=== PATIENT | female | born 1965 | race Caucasian/White ===

== ENCOUNTER → 2016-09-16 20:50 | Emergency (ER) | payer OTHER ==
[2016-09-16 19:35] LABS: BASOPHILS 0.4 %; BASOPHILS ABSOLUTE 0.04 10/3/uL (0.0-0.16); EOSINOPHILS 2.8 %; EOSINOPHILS ABSOLUTE 0.32 10/3/uL (0.0-0.53); HEMATOCRIT 43.9 % (36.0-48.0); HEMOGLOBIN 14.5 g/dL (12.0-16.0); IMMATURE GRANULOCYTES 0.2 %; IMMATURE GRANULOCYTES ABSOLUTE 0.02 10/3/uL (0.0-0.11); LYMPHOCYTES 39.3 %; LYMPHOCYTES ABSOLUTE 4.48 10/3/uL (0.67-4.30); MEAN CORPUSCULAR HEMOGLOB 25.8 pg (26.0-34.0); MEAN PLATELET VOLUME 10.1 fL (9.2-13.0); MONOCYTES 10.5 %; NEUTROPHILS 46.8 %; NEUTROPHILS ABSOLUTE 5.33 10/3/uL (2.02-8.40); PLATELET COUNT 473 10/3/uL (150-400); RBC DISTRIBUTION WIDTH 15.9 % (12.0-16.0); RED CELL COUNT 5.63 10/6/uL (4.0-5.6); WHITE BLOOD CELLS 11.4 10/3/uL (4.5-10.5)
[2016-09-16 19:36] LABS: MANUAL DIFF NO %
[2016-09-16 19:52] LABS: A/G RATIO 0.8 (0.7-1.9); ALBUMIN 3.7 G/DL (3.5-5.0); ALKALINE PHOSPHATASE 153 U/L (45-117); BUN (BLOOD UREA NITROGEN) 12 MG/DL (6-23); CALCIUM, SERUM 9.2 MG/DL (8.5-10.4); CHLORIDE, SERUM 106 MMOL/L (96-112); CO2 (CARBON DIOXIDE) 25 MMOL/L (24-34); CREATININE 0.68 MG/DL (0.55-1.02); GFR AFRICAN AMERICAN 120 ML/MIN (>=60); GFR NON AFRICAN AMERICAN 103 ML/MIN (>=60); GLOBULIN 4.5 G/DL (2.5-4.1); POTASSIUM, SERUM 3.9 MMOL/L (3.5-5.3); SGOT(AST) 20 U/L (5-40); SGPT(ALT) 28 U/L (5-65); SODIUM, SERUM 140 MMOL/L (135-148); TOTAL BILIRUBIN 0.3 MG/DL (0-1.2); TOTAL PROTEIN 8.2 G/DL (6.0-8.5)
[2016-09-16 19:53] LABS: GLUCOSE, SERUM 101 MG/DL (60-99)
[2016-09-16 19:55] LABS: ASCORBIC ACID (UR NOT ORDER) NEG (NEG); BILIRUBIN, URINE NEGATIVE (NEG); ER URINALYSIS TAT 0 Hrs 12 Mins; KETONE, URINE NEGATIVE (NEG); LEUKOCYTE ESTERASE(NOT OR NEG (NEG); WBC (NOT ORDERED) (RFLEX) 1 (0-5)
[2016-09-16 19:56] LABS: NITRITE (URINE) NEG (NEG)
[~2016-09-16 20:50] MED LIST: A/D ZINC OXI TOP; ALLEGRA180 PO; ATV.5 PO; BUSPAR30 MG PO; CIP5 PO; FLONASE NAS; GAVISCO2 PO; MAGNESIUM 500MG OTC PO; NEUR300 PO; OREGANO OIL PO; OTC PROBIOTIC PO; OXYCOD PO; PANCRELIPASE PO; PCET PO; PERCOCET1 TA2 PO; PR25 PO; PRILO PO; PRILOSEC40 MG PO; PROAIR HFA INH; PROBIOTIC OTC PO; PROZAC PO; PYR200 PO; RHINOCORT AQUA NAS; SIMVASTATIN PO; STOMACH MEDICATION PO; SUCR PO; TURMERIC 800 MG PO; VITAMIN B PO; ZOCOR10 PO; ZOL100 PO; [UNRECOGNIZED DRUG - CODE] PO
== END | disposition left against medical advice (07) ==
LOC: ER 20:50
PROVIDERS: Specialist
DX: Z53.21 Procedure and treatment not carried out due to patient leaving prior to being seen by health care provider (principal)
CPT/HCPCS: 80053; 81001; 83690; 85025; 93005; 99282

== ENCOUNTER 2016-09-27 21:19 | Emergency (ER) | payer OTHER ==
[~2016-09-27 21:19] MED LIST changes: -ALLEGRA180 PO; -BUSPAR30 MG PO; -CIP5 PO; -MAGNESIUM 500MG OTC PO; -PCET PO; -PR25 PO; -PRILOSEC40 MG PO; -PYR200 PO; -RHINOCORT AQUA NAS; -TURMERIC 800 MG PO; -VITAMIN B PO; -ZOL100 PO
[2016-09-27 22:03] LABS: WBC (NOT ORDERED) (RFLEX) 0 (0-5)
[2016-09-27 22:11] LABS: BASOPHILS 0.3 %; BASOPHILS ABSOLUTE 0.04 10/3/uL (0.0-0.16); EOSINOPHILS ABSOLUTE 0.44 10/3/uL (0.0-0.53); ER CBC TAT 0 Hrs 12 Mins; HEMATOCRIT 40.1 % (36.0-48.0); IMMATURE GRANULOCYTES 0.3 %; IMMATURE GRANULOCYTES ABSOLUTE 0.04 10/3/uL (0.0-0.11); LYMPHOCYTES 42.8 %; MEAN CORPUS HGB CONC 32.4 g/dL (32.0-36.0); MEAN CORPUSCULAR HEMOGLOB 25.2 pg (26.0-34.0); MEAN CORPUSCULAR VOLUME 77.9 fL (80-100); MEAN PLATELET VOLUME 10.9 fL (9.2-13.0); MONOCYTES 9.2 %; MONOCYTES ABSOLUTE 1.33 10/3/uL (0.21-1.20); NEUTROPHILS 44.4 %; NEUTROPHILS ABSOLUTE 6.45 10/3/uL (2.02-8.40); PLATELET COUNT 504 10/3/uL (150-400); RBC DISTRIBUTION WIDTH 15.7 % (12.0-16.0); RED CELL COUNT 5.15 10/6/uL (4.0-5.6); WHITE BLOOD CELLS 14.5 10/3/uL (4.5-10.5)
[2016-09-27 22:11] LABS: ASCORBIC ACID (UR NOT ORDER) NEG (NEG); BILIRUBIN, URINE NEGATIVE (NEG); ER URINALYSIS TAT 0 Hrs 12 Mins; KETONE, URINE NEGATIVE (NEG); LEUKOCYTE ESTERASE(NOT OR NEG (NEG); NITRITE (URINE) NEG (NEG)
[2016-09-27 22:12] LABS: MANUAL DIFF NO %
[2016-09-27 22:26] LABS: A/G RATIO 0.8 (0.7-1.9); ALBUMIN 3.5 G/DL (3.5-5.0); ALKALINE PHOSPHATASE 140 U/L (45-117); BUN (BLOOD UREA NITROGEN) 10 MG/DL (6-23); CALCIUM, SERUM 8.8 MG/DL (8.5-10.4); CHLORIDE, SERUM 108 MMOL/L (96-112); CO2 (CARBON DIOXIDE) 27 MMOL/L (24-34); CREATININE 0.67 MG/DL (0.55-1.02); GFR AFRICAN AMERICAN 120 ML/MIN (>=60); GFR NON AFRICAN AMERICAN 104 ML/MIN (>=60); GLOBULIN 4.2 G/DL (2.5-4.1); GLUCOSE, SERUM 102 MG/DL (60-99); POTASSIUM, SERUM 3.4 MMOL/L (3.5-5.3); SGOT(AST) 16 U/L (5-40); SGPT(ALT) 28 U/L (5-65); SODIUM, SERUM 143 MMOL/L (135-148); TOTAL BILIRUBIN 0.2 MG/DL (0-1.2); TOTAL PROTEIN 7.7 G/DL (6.0-8.5)
[2016-09-27 22:46] LABS: EOSINOPHILS 4 %; EOSINOPHILS ABSOLUTE (CALC) 0.58 10/3/uL (0.0-0.53); ER DIFF TAT 0 Hrs 47 Mins; LYMPHOCYTES 40 %; MONOCYTES 12 %; MONOCYTES ABSOLUTE (CALC) 1.74 10/3/uL (0.21-1.20); NEUTROPHILS ABSOLUTE (CALC) 6.38 10/3/uL (2.02-8.40); SEGMENTED NEUTROPHIL (0) 44 %; TOTAL NUCLEATED CELLS 100
[2016-09-27 22:47] LABS: HYPOCHROMIA 1+ (3-10/OIF) (0-2/OIF); PLATELET ESTIMATE SLT INC (ADEQUATE); TARGET CELLS FEW (3-10/OIF) (0-1/OIF)
== END 2016-09-28 02:16 | disposition home or self-care (01) ==
LOC: ER 21:19
PROVIDERS: Emergency Medicine
DX: R10.31 Right lower quadrant pain (principal); Z87.442 Personal history of urinary calculi; Z98.51 Tubal ligation status; Z79.899 Other long term (current) drug therapy
CPT/HCPCS: 74177; 80053; 81001; 83690; 85025; 96374; 99284; J1885; Q9967

== ENCOUNTER 2016-10-17 00:02 | Observation (INO) | payer OTHER ==
[2016-10-16 20:58] LABS: BASOPHILS 0.3 %; BASOPHILS ABSOLUTE 0.04 10/3/uL (0.0-0.16); EOSINOPHILS 2.8 %; EOSINOPHILS ABSOLUTE 0.37 10/3/uL (0.0-0.53); ER CBC TAT 0 Hrs 08 Mins; HEMATOCRIT 41.7 % (36.0-48.0); HEMOGLOBIN 13.6 g/dL (12.0-16.0); IMMATURE GRANULOCYTES 0.2 %; IMMATURE GRANULOCYTES ABSOLUTE 0.03 10/3/uL (0.0-0.11); LYMPHOCYTES 51.5 %; LYMPHOCYTES ABSOLUTE 6.85 10/3/uL (0.67-4.30); MANUAL DIFF NO %; MEAN CORPUS HGB CONC 32.6 g/dL (32.0-36.0); MEAN CORPUSCULAR HEMOGLOB 25.9 pg (26.0-34.0); MEAN CORPUSCULAR VOLUME 79.4 fL (80-100); MONOCYTES 8.7 %; MONOCYTES ABSOLUTE 1.16 10/3/uL (0.21-1.20); NEUTROPHILS 36.5 %; NEUTROPHILS ABSOLUTE 4.84 10/3/uL (2.02-8.40); PLATELET COUNT 458 10/3/uL (150-400); RBC DISTRIBUTION WIDTH 15.9 % (12.0-16.0); RED CELL COUNT 5.25 10/6/uL (4.0-5.6); WHITE BLOOD CELLS 13.3 10/3/uL (4.5-10.5)
[2016-10-16 21:11] LABS: BUN (BLOOD UREA NITROGEN) 13 MG/DL (6-23); CALCIUM, SERUM 8.6 MG/DL (8.5-10.4); CHLORIDE, SERUM 107 MMOL/L (96-112); CO2 (CARBON DIOXIDE) 28 MMOL/L (24-34); GFR AFRICAN AMERICAN 119 ML/MIN (>=60); GFR NON AFRICAN AMERICAN 102 ML/MIN (>=60); GLUCOSE, SERUM 88 MG/DL (60-99); POTASSIUM, SERUM 3.6 MMOL/L (3.5-5.3); SODIUM, SERUM 143 MMOL/L (135-148)
[2016-10-16 21:21] LABS: BAND NEUTROPHILS 4 %; EOSINOPHILS 2 %; EOSINOPHILS ABSOLUTE (CALC) 0.27 10/3/uL (0.0-0.53); ER DIFF TAT 0 Hrs 31 Mins; LYMPHOCYTES 53 %; LYMPHOCYTES ABSOLUTE (CALC) 7.05 10/3/uL (0.67-4.30); MONOCYTES 5 %; MONOCYTES ABSOLUTE (CALC) 0.67 10/3/uL (0.21-1.20); NEUTROPHILS ABSOLUTE (CALC) 5.32 10/3/uL (2.02-8.40); SEGMENTED NEUTROPHIL (0) 36 %; TOTAL NUCLEATED CELLS 100
[2016-10-16 21:22] LABS: GIANT PLATELET OCC; HYPOCHROMIA 1+ (3-10/OIF) (0-2/OIF); PLATELET ESTIMATE SLT INC (ADEQUATE)
[2016-10-16 22:54] LABS: ASCORBIC ACID (UR NOT ORDER) NEG (NEG); BILIRUBIN, URINE NEGATIVE (NEG); ER URINALYSIS TAT 0 Hrs 11 Mins; KETONE, URINE NEGATIVE (NEG); LEUKOCYTE ESTERASE(NOT OR NEG (NEG)
[2016-10-16 22:55] LABS: NITRITE (URINE) POS (NEG); WBC (NOT ORDERED) (RFLEX) 5 (0-5)
--- NOTE | ~2016-10-17 | HP ---
History And Physical [facility] [address] [place]. [address] NAME: OTILIA NEWMAN : 69 STATUS : ADM Arian PAT#: [id number] AGE: 50 ADM/REG DATE : 10/17/16 MR#: [id number] REPORT SERV DATE: 10/17/16 DICTATED BY: Kathleen ALARCON DATE: 10/17/16 REPORT STATUS : Draft TRANSCRIBED BY: MODL DATE: 10/17/16 DATE OF ADMISSION: 10/17/2016 CHIEF COMPLAINT: Right flank pain with distal ureteral stone possible UTI. HISTORY OF PRESENT ILLNESS: Ms. Newman is a 50-year-old white female seen in the emergency room with a history of stone disease and severe right flank pain. A CT showed a 3-mm right distal ureteral stone. She had perinephric stranding and evidence of UTI with inflammatory urine. Her temperature was only 99, and she was hemodynamically stable. We decided to admit her and plan for stent placement possible ureteroscopy, although it was my feeling that would probably not occur. PAST MEDICAL HISTORY: Urolithiasis, pancreatitis, GERD and depression. PAST SURGICAL HISTORY: Previous stone extraction, cholecystectomy, distal pancreatectomy with splenectomy. HOME MEDICATIONS: Vitamin B, BuSpar, Chelly, Prilosec, Phenergan, Zoloft, tumeric, magnesium, and Rhinocort. ALLERGIES: NO KNOWN DRUG ALLERGIES. REVIEW OF SYSTEMS: Full 12-point review of systems negative except as noted above. FAMILY HISTORY: Negative for urologic disease. PHYSICAL EXAMINATION: GENERAL: Alert, uncomfortable-appearing 50-year-old white female, afebrile. VITAL SIGNS: Blood pressure 145/70. HEENT: Normocephalic, atraumatic. CHEST: No respiratory distress. HEART: Regular rate and rhythm. ABDOMEN: Protuberant, nontender, and nondistended. No CVA tenderness. EXTREMITIES: The patient is ambulatory with help. No peripheral edema noted. PSYCH: She has a normal affect. PERTINENT LABORATORY: CBC shows white count 13,300, 36% segs. Urinalysis positive for nitrites, some bacteria, red cells, and white cells. Creatinine 0.7. IMPRESSION: 1. Right flank pain with distal ureteral stone. 2. Possible urinary tract infection. PLAN: 1. We will plan to admit at least overnight, culture her, and give her empiric History And Physical [address] [address] NAME: OTILIA NEWMAN : 69 STATUS : ADM Arian PAT#: [id number] AGE: 50 ADM/REG DATE : 10/17/16 MR#: [id number] REPORT SERV DATE: 10/17/16 DICTATED BY: Kathleen ALARCON DATE: 10/17/16 REPORT STATUS : Draft TRANSCRIBED BY: CHARLENE DATE: 10/17/16 antibiotics. 2. We will plan to take her to the OR today for a probable stent placement with ureteroscopy only if the stone appears easily accessible, but I think she should probably be given delayed ureteroscopy. SOFIA/CHARLENE Kathleen Alarcon M.D. / [id number] CC: Kathleen Alarcon M.D.
--- NOTE | ~2016-10-17 | OP ---
Record Of Operation [facility] [address] [place]. [address] NAME: OTILIA NEWMAN : 69 STATUS : ADM Arian PAT#: [id number] AGE: 50 ADM/REG DATE : 10/17/16 MR#: [id number] REPORT SERV DATE: 10/17/16 DICTATED BY: Kathleen BETANCOURT DATE: 10/17/16 REPORT STATUS : Draft TRANSCRIBED BY: MODL DATE: 10/17/16 DATE OF PROCEDURE: 10/17/2016 PREOPERATIVE DIAGNOSIS: Right distal ureteral stone with probable urinary tract infection. POSTOPERATIVE DIAGNOSIS: Right distal ureteral stone with probable urinary tract infection. PROCEDURES: Cystoscopy, right retrograde pyelography, stone manipulation, double-J stent placement. SURGEON: Kathleen Betancourt M.D. ANESTHESIA: General endotracheal. COMPLICATIONS: None. DRAINS: 7-Italian x 22 cm Contour double-J stent. BRIEF HISTORY: Ms. Newman is a 50-year-old white female with a history of recurrent stone disease. She was seen in the ER with right flank pain, inflammatory urine, low-grade temperature. She is here for stent placement. We talked about ureteroscopy, but in this setting, I felt that stent placement along with delayed ureteroscopy was important. She has received antibiotics and the cultures are pending. The risks of bleeding, infection, anesthesia, injury to adjacent organs, need for additional procedures were all discussed. There were no unanswered questions. DESCRIPTION OF PROCEDURE: Under excellent general anesthesia, the patient was prepped and draped in standard lithotomy position. Cystoscopy was performed with a 30-degree lens and showed concentrated urine with a lot of debris in her bladder. The orifices appeared normal. There were no tumors. The right intramural ureter appeared somewhat dilated. I performed a right retrograde pyelogram using an 8-Italian cone-tipped catheter. It showed a filling defect in the distal ureter with significant ureteral pyelocaliectasis and I confirmed that I only wanted to place a stent at this time. The stone had been manipulated somewhat proximally. I inserted an angled glidewire through a 5-Italian open-ended ureteral catheter and advanced the catheter proximally. The urine was not grossly purulent, but concentrated. I deliberately opacified the collecting system again, which was diluted and had some difficulty advancing the wire due to some tortuosity proximally. I was able to finally advance the 5-Italian open-ended catheter enough that the wire was made to curve into the collecting system. I then removed the open-ended catheter and placed a 7-Italian x 22 cm Contour double-J stent which coiled nicely in the renal pelvis and bladder. I planned to admit Ms. Newman overnight and depending upon her clinical course, I will discharge her when appropriate on antibiotics with delayed ureteroscopy in one to two weeks. JPD/MODL Record Of Operation [facility] [address] [facility] [address] [place]. [address] NAME: OTILIA NEWMAN : 69 STATUS : ADM Arian PAT#: [id number] AGE: 50 ADM/REG DATE : 10/17/16 MR#: [id number] REPORT SERV DATE: 10/17/16 DICTATED BY: Kathleen BETANCOURT DATE: 10/17/16 REPORT STATUS : Draft TRANSCRIBED BY: MODRyley DATE: 10/17/16 Kathleen Betancourt M.D. / [id number] CC: Kathleen Betancourt M.D.
--- NOTE | ~2016-10-17 | DS ---
Discharge Summary [address] [place]. [address] NAME: OTILIA NEWMAN : 69 STATUS : DIS Arian PAT#: [id number] AGE: 50 ADM/REG DATE : 10/17/16 MR#: [id number] REPORT SERV DATE: 10/19/16 DICTATED BY: Kathleen BETANCOURT DATE: 10/18/16 REPORT STATUS : Draft TRANSCRIBED BY: MODL DATE: 10/18/16 ADMISSION DATE: 10/17/2016 DISCHARGE DATE: 10/18/2016 ADMISSION DIAGNOSIS: Obstructing ureteral stone with possible urinary tract infection. DISCHARGE DIAGNOSIS: Obstructing ureteral stone with possible urinary tract infection. Urine culture pending. PROCEDURES DURING ADMISSION: 10/17/2016, cystoscopy, right retrograde pyelography, stone manipulation, double-J stent placement. COMPLICATIONS: None. CONSULTATIONS: None. BRIEF HISTORY: Ms. Newman is a 50-year-old white female with a history of stone disease, admitted with a right UVJ stone, possible UTI with inflammatory urine. Her temperature was 99 and she was hemodynamically stable. HOSPITAL COURSE AND TREATMENT: The patient was taken to the OR. The decision was made to simply place a stent with stone manipulation. Urine cultures were obtained, although it did not meet reflex culture criteria. We asked them to process it anyway and results are pending at this time. On the morning of 10/18, the patient looked much better. She felt fine. She was tolerating her stent well, was afebrile. Her white count was slightly high at 14,400, but she says that she has a chronically, mildly elevated white count. Her creatinine was 0.63. I agreed for discharge and will discharge her with the following plan. DISCHARGE INSTRUCTIONS: 1. Home today. 2. We will give empiric antibiotics with Cipro 500 mg p.o. b.i.d. x5 days. 3. Percocet 5/325 one to two p.o. q.4 hours p.r.n. pain, #20. 4. Pyridium 200 mg one p.o. t.i.d. p.r.n. bladder pain #15 with two refills. 5. We will check her culture results. If her antibiotics need to be changed, we will change them tentatively. Plan for ureteroscopy with stone extraction and stent exchange next week. She understands and we will contact her. SOFIA/CHARLENE Kathleen Betancourt M.D. / [phone] Discharge Summary [address] [address] NAME: OTILIA NEWMAN : 69 STATUS : DIS Arian PAT#: [id number] AGE: 50 ADM/REG DATE : 10/17/16 MR#: [id number] REPORT SERV DATE: 10/19/16 DICTATED BY: Kathleen BETANCOURT DATE: 10/18/16 REPORT STATUS : Draft TRANSCRIBED BY: CHARLENE DATE: 10/18/16 CC: Bryon Upton M.D.
[2016-10-17] MEDS ORDERED: ZOL100 PO (02:16)
[2016-10-17] MEDS ORDERED: BUSPAR30 MG PO (02:18)
[2016-10-17] MEDS ORDERED: MAGNESIUM 500MG OTC PO (02:23)
[2016-10-17] MEDS ORDERED: VITAMIN B PO (02:23)
[2016-10-17] MEDS ORDERED: PR25 PO (02:23)
[2016-10-17] MEDS ORDERED: TURMERIC 800 MG PO (02:23)
[2016-10-17] MEDS ORDERED: RHINOCORT AQUA NAS (02:35)
[2016-10-17] MEDS ORDERED: ALLEGRA180 PO (02:35)
[2016-10-17] MEDS ORDERED: PRILOSEC40 MG PO (02:35)
[2016-10-18 04:54] LABS: BASOPHILS 0.1 %; BASOPHILS ABSOLUTE 0.02 10/3/uL (0.0-0.16); EOSINOPHILS 0 %; HEMOGLOBIN 11.9 g/dL (12.0-16.0); IMMATURE GRANULOCYTES 0.1 %; IMMATURE GRANULOCYTES ABSOLUTE 0.02 10/3/uL (0.0-0.11); LYMPHOCYTES ABSOLUTE 2.88 10/3/uL (0.67-4.30); MEAN CORPUS HGB CONC 32.1 g/dL (32.0-36.0); MEAN CORPUSCULAR HEMOGLOB 25.5 pg (26.0-34.0); MEAN CORPUSCULAR VOLUME 79.6 fL (80-100); MEAN PLATELET VOLUME 10.9 fL (9.2-13.0); MONOCYTES 10.7 %; MONOCYTES ABSOLUTE 1.54 10/3/uL (0.21-1.20); NEUTROPHILS 69.1 %; NEUTROPHILS ABSOLUTE 9.95 10/3/uL (2.02-8.40); PLATELET COUNT 417 10/3/uL (150-400); RBC DISTRIBUTION WIDTH 16.2 % (12.0-16.0); RED CELL COUNT 4.66 10/6/uL (4.0-5.6); WHITE BLOOD CELLS 14.4 10/3/uL (4.5-10.5)
[2016-10-18 05:03] LABS: HEMATOCRIT 37.1 % (36.0-48.0); MANUAL DIFF NO %
[2016-10-18 05:14] LABS: A/G RATIO 0.8 (0.7-1.9); ALBUMIN 2.9 G/DL (3.5-5.0); BUN (BLOOD UREA NITROGEN) 10 MG/DL (6-23); CALCIUM, SERUM 8.6 MG/DL (8.5-10.4); CHLORIDE, SERUM 109 MMOL/L (96-112); CO2 (CARBON DIOXIDE) 25 MMOL/L (24-34); CREATININE 0.63 MG/DL (0.55-1.02); GFR AFRICAN AMERICAN 123 ML/MIN (>=60); GFR NON AFRICAN AMERICAN 106 ML/MIN (>=60); GLOBULIN 3.6 G/DL (2.5-4.1); POTASSIUM, SERUM 4.2 MMOL/L (3.5-5.3); SGOT(AST) 19 U/L (5-40); SGPT(ALT) 28 U/L (5-65); SODIUM, SERUM 141 MMOL/L (135-148); TOTAL BILIRUBIN 0.3 MG/DL (0-1.2); TOTAL PROTEIN 6.5 G/DL (6.0-8.5)
[2016-10-18 05:33] LABS: ALKALINE PHOSPHATASE 126 U/L (45-117); GLUCOSE, SERUM 116 MG/DL (60-99)
[2016-10-18] MEDS ORDERED: PCET PO (14:17)
[2016-10-18] MEDS ORDERED: PYR200 PO (14:18)
[2016-10-18] MEDS ORDERED: CIP5 PO (14:18)
== END 2016-10-18 14:33 | disposition home or self-care (01) ==
LOC: ER 00:02 → ER/OF 03:39 → 4SO 12:25
PROVIDERS: Emergency Medicine
PROC: 0TC68ZZ Extirpation of Matter from Right Ureter, Via Natural or Artificial Opening Endoscopic (ICD-10-PCS; 2016-10-17)
PROC: BT1DYZZ Fluoroscopy of Right Kidney, Ureter and Bladder using Other Contrast (ICD-10-PCS; 2016-10-17)
PROC: 0T768DZ Dilation of Right Ureter with Intraluminal Device, Via Natural or Artificial Opening Endoscopic (ICD-10-PCS; principal; 2016-10-17 12:00)
PROC: 0T768DZ Dilation of Right Ureter with Intraluminal Device, Via Natural or Artificial Opening Endoscopic (ICD-10-PCS; 2016-10-17 12:00)
DX: N20.1 Calculus of ureter (principal); K21.9 Gastro-esophageal reflux disease without esophagitis; F32.9 Major depressive disorder, single episode, unspecified; F17.210 Nicotine dependence, cigarettes, uncomplicated; I10 Essential (primary) hypertension; F41.9 Anxiety disorder, unspecified; Z98.51 Tubal ligation status; Z90.49 Acquired absence of other specified parts of digestive tract; Z90.81 Acquired absence of spleen; Z98.890 Other specified postprocedural states
CPT/HCPCS: 52330; 52332; 74176; 80048; 80053; 80170; 81001; 84703; 85025 ×2; 87086; 96365; 96375 ×3; 96376; 99218; 99285; C1758; C1769; C2617; J0330; J1170 ×2; J1580 ×2; J1885; J1956 ×2; J2250; J2405; J2550 ×2; J2710; J3010; Q9967; 52356; A9270-GY; G0378

== ENCOUNTER 2016-10-22 16:08 | Emergency (ER) | payer OTHER ==
[~2016-10-22 16:08] MED LIST changes: +ALLEGRA180 PO; +BUSPAR30 MG PO; +CIP5 PO; +MAGNESIUM 500MG OTC PO; +PCET PO; +PR25 PO; +PRILOSEC40 MG PO; +PYR200 PO; +RHINOCORT AQUA NAS; +TURMERIC 800 MG PO; +VITAMIN B PO; +ZOL100 PO
[2016-10-22 16:45] LABS: CALCIUM, SERUM 8.7 MG/DL (8.5-10.4); CHLORIDE, SERUM 105 MMOL/L (96-112); CO2 (CARBON DIOXIDE) 24 MMOL/L (24-34); GFR AFRICAN AMERICAN 119 ML/MIN (>=60); GFR NON AFRICAN AMERICAN 102 ML/MIN (>=60); GLUCOSE, SERUM 98 MG/DL (60-99); POTASSIUM, SERUM 4.2 MMOL/L (3.5-5.3); SGOT(AST) 16 U/L (5-40); SGPT(ALT) 26 U/L (5-65); SODIUM, SERUM 140 MMOL/L (135-148); TOTAL BILIRUBIN 0.7 MG/DL (0-1.2); TOTAL PROTEIN 7.6 G/DL (6.0-8.5)
[2016-10-22 16:46] LABS: A/G RATIO 0.9 (0.7-1.9); ALBUMIN 3.6 G/DL (3.5-5.0); ALKALINE PHOSPHATASE 143 U/L (45-117); BUN (BLOOD UREA NITROGEN) 18 MG/DL (6-23)
== END 2016-10-22 18:52 | disposition home or self-care (01) ==
LOC: ER 16:08
PROVIDERS: Emergency Medicine
DX: N20.1 Calculus of ureter (principal); Z87.442 Personal history of urinary calculi; Z79.899 Other long term (current) drug therapy
CPT/HCPCS: 80053; 81001; 83690; 84703; 85025; 87086; 96372; 99284; J1170; J2405

== ENCOUNTER 2016-10-26 11:48 | Day surgery (SDC) | payer OTHER ==
--- NOTE | ~2016-10-26 | OP ---
Record Of Operation [facility] [address] [place]. [address] NAME: OTILIA NEWMAN : 69 STATUS : [facility]#: [id number] AGE: 50 ADM/REG DATE : 10/26/16 MR#: [id number] REPORT SERV DATE: 10/26/16 DICTATED BY: Kathleen BETANCOURT DATE: 10/26/16 REPORT STATUS : Draft TRANSCRIBED BY: MODL DATE: 10/26/16 DATE OF PROCEDURE: 10/26/2016 PREOPERATIVE DIAGNOSIS: Right distal ureteral stone with indwelling double-J stent. POSTOPERATIVE DIAGNOSIS: Right distal ureteral stone with indwelling double-J stent, no residual stone found. PROCEDURES: Cystoscopy, removal of right double-J stent, right retrograde pyelography, ureteroscopy, removal of ureteral clot, double-J stent placement. SURGEON: Kathleen Betancourt M.D. ANESTHESIA: General endotracheal. COMPLICATIONS: None. DRAINS: 7-Trinidadian x 22 cm Contour double-J stent (on a string). BRIEF HISTORY: Ms Newman is a 50-year-old white female, admitted on 10/17/2016 with a right distal stone and presumed urinary tract infection. She was taken to the operating room, and a stent was placed. Ultimately, her culture was no growth. She has had some stent discomfort and a lot of hematuria since that time. She is here for stent removal, exchange, and stone extraction. The risks of bleeding, infection, anesthesia, injury to adjacent organs, inability to find stone etc. were all discussed. There were no unanswered questions. DESCRIPTION OF PROCEDURE: Under excellent general anesthesia, the patient was prepped and draped in standard lithotomy position. Cystoscopy was performed with a 30-degree lens, revealed a stent emanating from the right ureteral orifice. It was removed with a flexible grasper. I inserted an angled glidewire through a 5-Trinidadian open-ended catheter up to the area of the collecting system and then inserted a short rigid ureteroscope. I was able to inspect the ureter up to the UPJ and saw no evidence of stone, but there was considerable clot more so than usually seen in this scenario. I inserted a Nitinol basket and remove some of this clot hoping that it was harboring the previous distal ureteral stone, but I never saw any stone material. I then changed to a long rigid scope and inspected the entire ureter up into the collecting system and still saw no stone. I felt that due to the amount of blood that I was unlikely to have reasonable visualization with the flexible scope I opted not to do that. I dilutely opacified the right collecting system, retrofitted wire in the cystoscope, and placed a 7-Trinidadian x 22 cm Contour double-J stent. It coiled nicely in the renal pelvis and bladder, and I think that she could remove this at home on 10/29/2016. If she is having any problems, call sooner or otherwise follow up in one to two months to decide on further imaging as appropriate etc. Record Of Operation [facility] [id number] [facility] [place]. [address] NAME: OTILIA NEWMAN : 69 STATUS : [facility]#: [id number] AGE: 50 ADM/REG DATE : 10/26/16 MR#: [id number] REPORT SERV DATE: 10/26/16 DICTATED BY: Kathleen BETANCOURT DATE: 10/26/16 REPORT STATUS : Draft TRANSCRIBED BY: CHARLENE DATE: 10/26/16 SOFIA/CHARLENE Kathleen Betancourt M.D. / [id number] CC: Bryon Upton M.D.
== END 2016-10-26 17:31 | disposition home or self-care (01) ==
LOC: SDC 11:48
PROC: 0TJ98ZZ Inspection of Ureter, Via Natural or Artificial Opening Endoscopic (ICD-10-PCS; 2016-10-26)
PROC: 0TCB8ZZ Extirpation of Matter from Bladder, Via Natural or Artificial Opening Endoscopic (ICD-10-PCS; 2016-10-26)
PROC: 0T768DZ Dilation of Right Ureter with Intraluminal Device, Via Natural or Artificial Opening Endoscopic (ICD-10-PCS; principal; 2016-10-26 13:30)
DX: Z46.6 Encounter for fitting and adjustment of urinary device (principal); I10 Essential (primary) hypertension; F41.9 Anxiety disorder, unspecified; F32.9 Major depressive disorder, single episode, unspecified; F17.210 Nicotine dependence, cigarettes, uncomplicated; Z90.49 Acquired absence of other specified parts of digestive tract; Z98.51 Tubal ligation status; Z87.442 Personal history of urinary calculi; Z98.890 Other specified postprocedural states
CPT/HCPCS: 74420; 80048; 85014; 85018; A9270-GY; C2617; J1170; J2250; J2405; J2550; J2710; J3010; Q9967

== ENCOUNTER 2016-11-27 09:31 | Emergency (ER) | payer OTHER | END 2016-11-27 10:44 | disposition home or self-care (01) | LOC: ER 09:31 | DX: M54.42 Lumbago with sciatica, left side (principal); M54.41 Lumbago with sciatica, right side; K21.9 Gastro-esophageal reflux disease without esophagitis; F32.9 Major depressive disorder, single episode, unspecified; F17.200 Nicotine dependence, unspecified, uncomplicated; Z87.442 Personal history of urinary calculi; Z79.899 Other long term (current) drug therapy | CPT/HCPCS: 72100; 96372; 99283; J1040 ==

== ENCOUNTER 2016-12-18 01:45 | Emergency (ER) | payer OTHER ==
[2016-12-18 02:35] LABS: BASOPHILS 0.3 %; BASOPHILS ABSOLUTE 0.05 10/3/uL (0.0-0.16); EOSINOPHILS 1.5 %; EOSINOPHILS ABSOLUTE 0.24 10/3/uL (0.0-0.53); ER CBC TAT 0 Hrs 05 Mins; HEMOGLOBIN 14.2 g/dL (12.0-16.0); IMMATURE GRANULOCYTES 0.2 %; LYMPHOCYTES 41.2 %; LYMPHOCYTES ABSOLUTE 6.58 10/3/uL (0.67-4.30); MEAN CORPUS HGB CONC 33.2 g/dL (32.0-36.0); MEAN CORPUSCULAR HEMOGLOB 26.6 pg (26.0-34.0); MEAN CORPUSCULAR VOLUME 80.3 fL (80-100); MEAN PLATELET VOLUME 10.6 fL (9.2-13.0); MONOCYTES 9.3 %; MONOCYTES ABSOLUTE 1.49 10/3/uL (0.21-1.20); NEUTROPHILS 47.5 %; NEUTROPHILS ABSOLUTE 7.59 10/3/uL (2.02-8.40); PLATELET COUNT 478 10/3/uL (150-400); RBC DISTRIBUTION WIDTH 16.1 % (12.0-16.0); RED CELL COUNT 5.33 10/6/uL (4.0-5.6)
[2016-12-18 02:36] LABS: HEMATOCRIT 42.8 % (36.0-48.0); IMMATURE GRANULOCYTES ABSOLUTE 0.03 10/3/uL (0.0-0.11); MANUAL DIFF NO %
[2016-12-18 02:52] LABS: A/G RATIO 0.9 (0.7-1.9); ALBUMIN 3.7 G/DL (3.5-5.0); ALKALINE PHOSPHATASE 139 U/L (45-117); CALCIUM, SERUM 9.3 MG/DL (8.5-10.4); CHLORIDE, SERUM 105 MMOL/L (96-112); CO2 (CARBON DIOXIDE) 27 MMOL/L (24-34); CREATININE 0.77 MG/DL (0.55-1.02); GFR AFRICAN AMERICAN 105 ML/MIN (>=60); GFR NON AFRICAN AMERICAN 91 ML/MIN (>=60); GLOBULIN 4.1 G/DL (2.5-4.1); GLUCOSE, SERUM 109 MG/DL (60-99); POTASSIUM, SERUM 3.9 MMOL/L (3.5-5.3); SGOT(AST) 18 U/L (5-40); SGPT(ALT) 23 U/L (5-65); SODIUM, SERUM 141 MMOL/L (135-148); TOTAL PROTEIN 7.8 G/DL (6.0-8.5)
[2016-12-18 02:53] LABS: BUN (BLOOD UREA NITROGEN) 10 MG/DL (6-23); TOTAL BILIRUBIN 0.2 MG/DL (0-1.2)
[2016-12-18 02:57] LABS: BAND NEUTROPHILS 1 %; EOSINOPHILS 1 %; EOSINOPHILS ABSOLUTE (CALC) 0.16 10/3/uL (0.0-0.53); ER DIFF TAT 0 Hrs 27 Mins; LYMPHOCYTES 41 %; LYMPHOCYTES ABSOLUTE (CALC) 6.56 10/3/uL (0.67-4.30); MONOCYTES 9 %; MONOCYTES ABSOLUTE (CALC) 1.44 10/3/uL (0.21-1.20); NEUTROPHILS ABSOLUTE (CALC) 7.84 10/3/uL (2.02-8.40); PLATELET ESTIMATE SLT INC (ADEQUATE); RBC MORPHOLOGY NORM (NORMAL); SEGMENTED NEUTROPHIL (0) 48 %; TOTAL NUCLEATED CELLS 100
[2016-12-18 03:08] LABS: ASCORBIC ACID (UR NOT ORDER) NEG (NEG); BILIRUBIN, URINE NEGATIVE (NEG); ER URINALYSIS TAT 0 Hrs 07 Mins; KETONE, URINE NEGATIVE (NEG); LEUKOCYTE ESTERASE(NOT OR TRACE (NEG); NITRITE (URINE) NEG (NEG); WBC (NOT ORDERED) (RFLEX) 5 (0-5)
== END 2016-12-18 04:16 | disposition home or self-care (01) ==
LOC: ER 01:45
PROVIDERS: Emergency Medicine
DX: R10.13 Epigastric pain (principal); R10.30 Lower abdominal pain, unspecified; G89.29 Other chronic pain; Z87.442 Personal history of urinary calculi; Z79.899 Other long term (current) drug therapy
CPT/HCPCS: 80053; 81001; 83690; 85025; 96374; 96375; 99284; A9270-GY; J1170; J2405

== ENCOUNTER 2016-12-25 09:13 | Emergency (ER) | payer OTHER ==
[2016-12-25 08:21] LABS: BASOPHILS 0.4 %; BASOPHILS ABSOLUTE 0.06 10/3/uL (0.0-0.16); EOSINOPHILS 1.5 %; EOSINOPHILS ABSOLUTE 0.25 10/3/uL (0.0-0.53); ER CBC TAT 0 Hrs 07 Mins; HEMATOCRIT 41.5 % (36.0-48.0); HEMOGLOBIN 13.7 g/dL (12.0-16.0); IMMATURE GRANULOCYTES 0.3 %; LYMPHOCYTES 39.1 %; MEAN CORPUSCULAR HEMOGLOB 26.6 pg (26.0-34.0); MEAN CORPUSCULAR VOLUME 80.4 fL (80-100); MEAN PLATELET VOLUME 10.6 fL (9.2-13.0); MONOCYTES 10.7 %; MONOCYTES ABSOLUTE 1.78 10/3/uL (0.21-1.20); NEUTROPHILS ABSOLUTE 7.97 10/3/uL (2.02-8.40); PLATELET COUNT 419 10/3/uL (150-400); RED CELL COUNT 5.16 10/6/uL (4.0-5.6); WHITE BLOOD CELLS 16.6 10/3/uL (4.5-10.5)
[2016-12-25 08:23] LABS: IMMATURE GRANULOCYTES ABSOLUTE 0.05 10/3/uL (0.0-0.11); MANUAL DIFF NO %
[2016-12-25 08:36] LABS: ALBUMIN 3.6 G/DL (3.5-5.0); ALKALINE PHOSPHATASE 133 U/L (45-117); BUN (BLOOD UREA NITROGEN) 12 MG/DL (6-23); CHLORIDE, SERUM 104 MMOL/L (96-112); CO2 (CARBON DIOXIDE) 26 MMOL/L (24-34); CREATININE 0.77 MG/DL (0.55-1.02); GFR AFRICAN AMERICAN 105 ML/MIN (>=60); GFR NON AFRICAN AMERICAN 91 ML/MIN (>=60); GLOBULIN 3.6 G/DL (2.5-4.1); GLUCOSE, SERUM 108 MG/DL (60-99); POTASSIUM, SERUM 3.7 MMOL/L (3.5-5.3); SGOT(AST) 20 U/L (5-40); SGPT(ALT) 26 U/L (5-65); SODIUM, SERUM 138 MMOL/L (135-148); TOTAL BILIRUBIN 0.2 MG/DL (0-1.2); TOTAL PROTEIN 7.2 G/DL (6.0-8.5)
[2016-12-25 08:50] LABS: EOSINOPHILS 1 %; EOSINOPHILS ABSOLUTE (CALC) 0.17 10/3/uL (0.0-0.53); ER DIFF TAT 0 Hrs 36 Mins; LYMPHOCYTES 54 %; LYMPHOCYTES ABSOLUTE (CALC) 8.96 10/3/uL (0.67-4.30); MONOCYTES 6 %; NEUTROPHILS ABSOLUTE (CALC) 6.47 10/3/uL (2.02-8.40); SEGMENTED NEUTROPHIL (0) 39 %; SMUDGE CELLS OCC; TOTAL NUCLEATED CELLS 100
[2016-12-25 08:51] LABS: PLATELET ESTIMATE SLT INC (ADEQUATE); RBC MORPHOLOGY NORM (NORMAL)
[2016-12-25 09:38] LABS: ASCORBIC ACID (UR NOT ORDER) NEG (NEG); BILIRUBIN, URINE NEGATIVE (NEG); ER URINALYSIS TAT 0 Hrs 12 Mins; KETONE, URINE NEGATIVE (NEG); LEUKOCYTE ESTERASE(NOT OR NEG (NEG); NITRITE (URINE) NEG (NEG); WBC (NOT ORDERED) (RFLEX) 1 (0-5)
[2016-12-25 10:40] LABS: PATH REVIEW YES
[2016-12-25 12:43] LABS: PATH REVIEW SEE PATHOLOGY REPORT
== END 2016-12-25 10:07 | disposition home or self-care (01) ==
LOC: ER 09:13
PROVIDERS: Physician Assistant
DX: R10.10 Upper abdominal pain, unspecified (principal); R10.13 Epigastric pain; Z87.442 Personal history of urinary calculi; K21.9 Gastro-esophageal reflux disease without esophagitis; F32.9 Major depressive disorder, single episode, unspecified; Z79.899 Other long term (current) drug therapy
CPT/HCPCS: 74176; 80053; 81001; 83690; 85025; 96374; 99284; J2405

== ENCOUNTER 2017-01-09 03:59 | Emergency (ER) | payer OTHER ==
[2017-01-09 03:33] LABS: ASCORBIC ACID (UR NOT ORDER) NEG (NEG); BILIRUBIN, URINE NEGATIVE (NEG); ER URINALYSIS TAT 0 Hrs 00 Mins; KETONE, URINE NEGATIVE (NEG); LEUKOCYTE ESTERASE(NOT OR NEG (NEG); WBC (NOT ORDERED) (RFLEX) 5 (0-5)
[2017-01-09 03:34] LABS: NITRITE (URINE) POS (NEG)
[2017-01-09 03:45] LABS: BASOPHILS 0.2 %; BASOPHILS ABSOLUTE 0.04 10/3/uL (0.0-0.16); EOSINOPHILS 1.8 %; EOSINOPHILS ABSOLUTE 0.32 10/3/uL (0.0-0.53); ER CBC TAT 0 Hrs 08 Mins; HEMATOCRIT 41.8 % (36.0-48.0); HEMOGLOBIN 13.9 g/dL (12.0-16.0); IMMATURE GRANULOCYTES 0.3 %; LYMPHOCYTES 36.6 %; LYMPHOCYTES ABSOLUTE 6.63 10/3/uL (0.67-4.30); MEAN CORPUS HGB CONC 33.3 g/dL (32.0-36.0); MEAN CORPUSCULAR HEMOGLOB 26.7 pg (26.0-34.0); MEAN CORPUSCULAR VOLUME 80.2 fL (80-100); MEAN PLATELET VOLUME 10.2 fL (9.2-13.0); MONOCYTES 9.2 %; MONOCYTES ABSOLUTE 1.66 10/3/uL (0.21-1.20); NEUTROPHILS 51.9 %; NEUTROPHILS ABSOLUTE 9.42 10/3/uL (2.02-8.40); PLATELET COUNT 448 10/3/uL (150-400); RBC DISTRIBUTION WIDTH 15.7 % (12.0-16.0); RED CELL COUNT 5.21 10/6/uL (4.0-5.6); WHITE BLOOD CELLS 18.1 10/3/uL (4.5-10.5)
[2017-01-09 03:46] LABS: IMMATURE GRANULOCYTES ABSOLUTE 0.05 10/3/uL (0.0-0.11); MANUAL DIFF NO %
[2017-01-09 04:00] LABS: BUN (BLOOD UREA NITROGEN) 13 MG/DL (6-23); CALCIUM, SERUM 8.7 MG/DL (8.5-10.4); CHLORIDE, SERUM 108 MMOL/L (96-112); CO2 (CARBON DIOXIDE) 27 MMOL/L (24-34); CREATININE 0.82 MG/DL (0.55-1.02); GFR AFRICAN AMERICAN 97 ML/MIN (>=60); GFR NON AFRICAN AMERICAN 84 ML/MIN (>=60); SODIUM, SERUM 142 MMOL/L (135-148)
[2017-01-09 04:05] LABS: POTASSIUM, SERUM 3.6 MMOL/L (3.5-5.3)
[2017-01-09 04:06] LABS: BAND NEUTROPHILS 1 %; BASOPHILS 1 %; BASOPHILS ABSOLUTE (CALC) 0.18 10/3/uL (0.0-0.16); EOSINOPHILS 1 %; EOSINOPHILS ABSOLUTE (CALC) 0.18 10/3/uL (0.0-0.53); ER DIFF TAT 0 Hrs 29 Mins; GLUCOSE, SERUM 149 MG/DL (60-99); LYMPHOCYTES 44 %; LYMPHOCYTES ABSOLUTE (CALC) 7.96 10/3/uL (0.67-4.30); MONOCYTES 3 %; MONOCYTES ABSOLUTE (CALC) 0.54 10/3/uL (0.21-1.20); NEUTROPHILS ABSOLUTE (CALC) 9.23 10/3/uL (2.02-8.40); SEGMENTED NEUTROPHIL (0) 50 %; TOTAL NUCLEATED CELLS 100
[2017-01-09 04:07] LABS: PLATELET ESTIMATE SLT INC (ADEQUATE); RBC MORPHOLOGY NORM (NORMAL)
== END 2017-01-09 04:52 | disposition home or self-care (01) ==
LOC: ER 03:59
PROVIDERS: Nurse Practitioner Acute Care
DX: N12 Tubulo-interstitial nephritis, not specified as acute or chronic (principal); K21.9 Gastro-esophageal reflux disease without esophagitis; F32.9 Major depressive disorder, single episode, unspecified; Z98.51 Tubal ligation status; F17.200 Nicotine dependence, unspecified, uncomplicated; Z87.442 Personal history of urinary calculi; Z79.891 Long term (current) use of opiate analgesic; Z79.899 Other long term (current) drug therapy; Z79.2 Long term (current) use of antibiotics
CPT/HCPCS: 80048; 81001; 85025; 96374; 96375; 99283; A9270-GY; J1885; J2405; J2800